=== PATIENT | male | born 1965 | race Caucasian/White ===

== ENCOUNTER 2017-04-04 13:42 | Inpatient (IN) | payer MEDICAID ==
[~2017-04-04] VITALS: Ht 177.8 cm; Wt 101.0 kg
[2017-04-04 14:45] LABS: CALCIUM 10.1 mg/dL (8.5-10.1); CHLORIDE SERUM 85 mmol/L (98-107); CREATININE SERUM 1.1 mg/dL (0.7-1.3); GFR1 > 60 mL/min; GLUCOSE SERUM 320 mg/dL (74-106); POTASSIUM SERUM 4.8 mmol/L (3.5-5.1); SODIUM SERUM 128 mmol/L (136-145)
[2017-04-04 14:46] LABS: BASOPHIL % 0.3 % (0-2); PLATELET COUNT 267 x10^3mcL (130-400)
[2017-04-04 14:48] LABS: RED CELL DISTRIBUTION WIDTH 17.5 % (11.5-14.5)
[2017-04-04 14:56] LABS: ALBUMIN 3.8 g/dL (3.4-5.0); ALKALINE PHOSPHATASE 132 U/L (46-116); ALT/SGPT 93 U/L (16-63); AST/SGOT 122 U/L (15-37); BILIRUBIN TOTAL 1.3 mg/dL (0.20-1.00); TOTAL PROTEIN, SERUM 7.7 g/dL (6.4-8.2)
[2017-04-04 15:01] LABS: LIPASE 1710 IU/L (73-393)
[2017-04-04] MEDS ORDERED: GLU500 (15:17)
[2017-04-04] MEDS ORDERED: LANTUS SOLOS100 U/M1 SC (15:17)
[2017-04-04] MEDS ORDERED: LISINOPRIL2.5 MG (15:17)
[2017-04-04 15:32] LABS: UA SPECIFIC GRAVITY >=1.030 (1.005-1.035); microscopic required? YES; urine erythrocyte NEGATIVE (NEGATIVE)
[2017-04-04 15:56] LABS: AMPHETAMINE QUAL UR NONE DETECTED (NEG <=1000)
[2017-04-04 15:58] LABS: MAGNESIUM 2.2 mg/dL (1.8-2.4)
[2017-04-04 15:59] LABS: T3 TOTAL 0.47 ng/mL
[2017-04-04 16:00] LABS: AMYLASE 125 U/L (25-115)
[2017-04-04 16:01] LABS: CHOLESTEROL 262 mg/dL (<200); CHOLESTEROL/HDL RATIO 9.4; HDL CHOLESTEROL 28 mg/dL (40-60); TRIGLYCERIDES 1165 mg/dL (<150)
[2017-04-04 16:03] LABS: FREE T4 0.8 ng/dL (0.76-1.46); FREE THYROXINE INDEX 1.9 ug/dL (1.4-4.5); T4(THYROXINE) 5.4 ug/dL (4.7-13.3)
[2017-04-04 16:12] VITALS: BP 160/88
[2017-04-04 19:15] VITALS: BP 165/87
[2017-04-04 20:52] LABS: CALCIUM 8.7 mg/dL (8.5-10.1); CHLORIDE SERUM 93 mmol/L (98-107); CREATININE SERUM 1.2 mg/dL (0.7-1.3); GFR1 > 60 mL/min; GLUCOSE SERUM 227 mg/dL (74-106); PHOSPHOROUS 2.9 mg/dL (2.5-4.9); POTASSIUM SERUM 3.8 mmol/L (3.5-5.1); SODIUM SERUM 134 mmol/L (136-145)
[2017-04-04 23:22] VITALS: BP 155/84
[2017-04-05 00:33] LABS: CALCIUM 8.1 mg/dL (8.5-10.1); CARBON DIOXIDE 24.9 mmol/L (21-32); CHLORIDE SERUM 94 mmol/L (98-107); CREATININE SERUM 0.9 mg/dL (0.7-1.3); GFR1 > 60 mL/min; GLUCOSE SERUM 195 mg/dL (74-106); MAGNESIUM 1.8 mg/dL (1.8-2.4); PHOSPHOROUS 1.2 mg/dL (2.5-4.9); POTASSIUM SERUM 3.5 mmol/L (3.5-5.1); SODIUM SERUM 131 mmol/L (136-145)
[2017-04-05 03:15] VITALS: BP 176/101
[2017-04-05 05:39] LABS: CALCIUM 8.4 mg/dL (8.5-10.1); CARBON DIOXIDE 25.8 mmol/L (21-32); CHLORIDE SERUM 93 mmol/L (98-107); CREATININE SERUM 0.8 mg/dL (0.7-1.3); GFR1 > 60 mL/min; GLUCOSE SERUM 166 mg/dL (74-106); MAGNESIUM 1.8 mg/dL (1.8-2.4); PHOSPHOROUS 1.2 mg/dL (2.5-4.9)
[2017-04-05 05:56] LABS: SODIUM SERUM 131 mmol/L (136-145)
[2017-04-05 05:59] LABS: POTASSIUM SERUM 2.9 mmol/L (3.5-5.1)
[2017-04-05 07:39] VITALS: BP 154/98
[2017-04-05 09:27] LABS: CALCIUM 8.2 mg/dL (8.5-10.1); CHLORIDE SERUM 92 mmol/L (98-107); CREATININE SERUM 0.8 mg/dL (0.7-1.3); GFR1 > 60 mL/min; GLUCOSE SERUM 211 mg/dL (74-106); MAGNESIUM 1.8 mg/dL (1.8-2.4); PHOSPHOROUS 1.1 mg/dL (2.5-4.9); SODIUM SERUM 129 mmol/L (136-145)
[2017-04-05 09:40] LABS: POTASSIUM SERUM 2.9 mmol/L (3.5-5.1)
[2017-04-05 12:23] VITALS: BP 149/93
[2017-04-05 13:33] LABS: CALCIUM 7.8 mg/dL (8.5-10.1); CARBON DIOXIDE 25.7 mmol/L (21-32); CHLORIDE SERUM 93 mmol/L (98-107); CREATININE SERUM 0.8 mg/dL (0.7-1.3); GFR1 > 60 mL/min; GLUCOSE SERUM 196 mg/dL (74-106); MAGNESIUM 1.6 mg/dL (1.8-2.4); PHOSPHOROUS 1.7 mg/dL (2.5-4.9); POTASSIUM SERUM 3.4 mmol/L (3.5-5.1); SODIUM SERUM 131 mmol/L (136-145)
[2017-04-05 15:33] VITALS: BP 134/97
[2017-04-05 17:01] LABS: CALCIUM 7.6 mg/dL (8.5-10.1); CHLORIDE SERUM 93 mmol/L (98-107); CREATININE SERUM 0.8 mg/dL (0.7-1.3); GFR1 > 60 mL/min; GLUCOSE SERUM 198 mg/dL (74-106); MAGNESIUM 1.7 mg/dL (1.8-2.4); PHOSPHOROUS 1.4 mg/dL (2.5-4.9); POTASSIUM SERUM 3.1 mmol/L (3.5-5.1); SODIUM SERUM 129 mmol/L (136-145)
[2017-04-05 19:15] VITALS: BP 125/94
[2017-04-05 20:20] LABS: BASOPHIL % 0.9 % (0-2); PLATELET COUNT 171 x10^3mcL (130-400)
[2017-04-05 20:31] LABS: RED CELL DISTRIBUTION WIDTH 17.8 % (11.5-14.5)
[2017-04-05 20:35] LABS: CALCIUM 7.6 mg/dL (8.5-10.1); CARBON DIOXIDE 28.6 mmol/L (21-32); CHLORIDE SERUM 94 mmol/L (98-107); CREATININE SERUM 0.8 mg/dL (0.7-1.3); GFR1 > 60 mL/min; GLUCOSE SERUM 173 mg/dL (74-106); MAGNESIUM 1.6 mg/dL (1.8-2.4); PHOSPHOROUS 1.1 mg/dL (2.5-4.9); SODIUM SERUM 131 mmol/L (136-145)
[2017-04-05 20:37] LABS: POTASSIUM SERUM 2.9 mmol/L (3.5-5.1)
[2017-04-05 23:00] VITALS: BP 125/64
[2017-04-06] VITALS (10 sets, daily range): BP systolic 124–150; BP diastolic 83–99
[2017-04-06 00:29] LABS: CALCIUM 7.7 mg/dL (8.5-10.1); CARBON DIOXIDE 28.7 mmol/L (21-32); CHLORIDE SERUM 95 mmol/L (98-107); CREATININE SERUM 0.8 mg/dL (0.7-1.3); GFR1 > 60 mL/min; GLUCOSE SERUM 146 mg/dL (74-106); MAGNESIUM 1.7 mg/dL (1.8-2.4); PHOSPHOROUS 1.2 mg/dL (2.5-4.9); POTASSIUM SERUM 3.8 mmol/L (3.5-5.1); SODIUM SERUM 132 mmol/L (136-145)
[2017-04-06 05:22] LABS: CALCIUM 7.7 mg/dL (8.5-10.1); CARBON DIOXIDE 21.9 mmol/L (21-32); CHLORIDE SERUM 95 mmol/L (98-107); CREATININE SERUM 0.8 mg/dL (0.7-1.3); GFR1 > 60 mL/min; GLUCOSE SERUM 286 mg/dL (74-106); MAGNESIUM 1.7 mg/dL (1.8-2.4); PHOSPHOROUS 1.3 mg/dL (2.5-4.9); POTASSIUM SERUM 3.7 mmol/L (3.5-5.1); SODIUM SERUM 131 mmol/L (136-145)
[2017-04-06 11:58] LABS: CALCIUM 7.6 mg/dL (8.5-10.1); CARBON DIOXIDE 26.8 mmol/L (21-32); CHLORIDE SERUM 97 mmol/L (98-107); CREATININE SERUM 0.7 mg/dL (0.7-1.3); GFR1 > 60 mL/min; GLUCOSE SERUM 229 mg/dL (74-106); MAGNESIUM 1.8 mg/dL (1.8-2.4); PHOSPHOROUS 1.2 mg/dL (2.5-4.9); POTASSIUM SERUM 3.5 mmol/L (3.5-5.1); SODIUM SERUM 135 mmol/L (136-145)
[2017-04-06 16:14] LABS: CALCIUM 7.9 mg/dL (8.5-10.1); CARBON DIOXIDE 26.4 mmol/L (21-32); CHLORIDE SERUM 98 mmol/L (98-107); CREATININE SERUM 0.6 mg/dL (0.7-1.3); GFR1 > 60 mL/min; GLUCOSE SERUM 205 mg/dL (74-106); MAGNESIUM 1.8 mg/dL (1.8-2.4); POTASSIUM SERUM 3.3 mmol/L (3.5-5.1); SODIUM SERUM 134 mmol/L (136-145)
[2017-04-06 16:25] LABS: PHOSPHOROUS 1.1 mg/dL (2.5-4.9)
[2017-04-07 06:16] VITALS: BP 142/83
[2017-04-07 08:02] VITALS: Ht 177.8 cm; Wt 101.0 kg
[2017-04-07 08:24] LABS: BASOPHIL % 0.3 % (0-2); PLATELET COUNT 161 x10^3mcL (130-400)
[2017-04-07 08:50] LABS: RED CELL DISTRIBUTION WIDTH 18.7 % (11.5-14.5)
[2017-04-07 09:03] LABS: CALCIUM 7.9 mg/dL (8.5-10.1); CARBON DIOXIDE 22.3 mmol/L (21-32); CHLORIDE SERUM 97 mmol/L (98-107); CREATININE SERUM 0.6 mg/dL (0.7-1.3); GFR1 > 60 mL/min; GLUCOSE SERUM 197 mg/dL (74-106); POTASSIUM SERUM 4.1 mmol/L (3.5-5.1); SODIUM SERUM 131 mmol/L (136-145)
[2017-04-07 09:42] VITALS: BP 141/87
[2017-04-07] MEDS ORDERED: LANTUS SOLOS100 U/M1 SC (09:51)
[2017-04-07] MEDS ORDERED: LIPI20 PO (09:53)
[2017-04-07] MEDS ORDERED: ZES5 PO (09:54)
[2017-04-07] MEDS ORDERED: NORCO1 TA2 PO (09:54)
[2017-04-07] MEDS ORDERED: COLACE100 MG PO (09:55)
[2017-04-07] MEDS ORDERED: LAC30L PO (10:40)
[2017-04-07] MEDS ORDERED: PROZ20 PO (10:40)
[2017-04-07] MEDS ORDERED: BAY PO (10:40)
[2017-04-07] MEDS ORDERED: ATI1 PO (10:40)
[2017-04-07] MEDS ORDERED: GLU500 PO (10:40)
[2017-04-07] MEDS ORDERED: HUMALOG100 U/ML SC (10:40)
[2017-04-07] MEDS ORDERED: ZOF4 PO (10:55)
[2017-04-07 12:15] VITALS: BP 141/87
== END 2017-04-07 12:53 | disposition home or self-care (01) | DRG 420 ==
LOC: ED 13:42 → IC 15:09 → DU 04-06 17:40
PROVIDERS: Emergency Medicine; Family Medicine; Family Medicine Sports Medicine
PROC: 05HM33Z Insertion of Infusion Device into Right Internal Jugular Vein, Percutaneous Approach (ICD-10-PCS; principal; 2017-04-04)
DX: E11.10 Type 2 diabetes mellitus with ketoacidosis without coma (principal); N17.0 Acute kidney failure with tubular necrosis; K85.90 Acute pancreatitis without necrosis or infection, unspecified; K70.0 Alcoholic fatty liver; E83.39 Other disorders of phosphorus metabolism; E11.51 Type 2 diabetes mellitus with diabetic peripheral angiopathy without gangrene; K72.90 Hepatic failure, unspecified without coma; E87.1 Hypo-osmolality and hyponatremia; E87.6 Hypokalemia; E78.5 Hyperlipidemia, unspecified; F41.1 Generalized anxiety disorder; I10 Essential (primary) hypertension; F10.229 Alcohol dependence with intoxication, unspecified; Z79.4 Long term (current) use of insulin; Z68.30 Body mass index [BMI] 30.0-30.9, adult
CPT/HCPCS: 36556; 36600; 82962; 83880; 84439; C9113; G0480; J0360; J1642; J1815; J1885; J2001; J2060; J2270; J2405; J2765; J3010; J3480; J3490; J7030; Q0092

== ENCOUNTER 2017-04-14 17:59 | Emergency (ER) | payer MEDICAID ==
[~2017-04-14 17:59] MED LIST: ATI1 PO; BAY PO; COLACE100 MG PO; GLU500; GLU500 PO; HUMALOG100 U/ML SC; LAC30L PO; LANTUS SOLOS100 U/M1 SC; LIPI20 PO; LISINOPRIL2.5 MG; NORCO1 TA2 PO; PROZ20 PO; ZES5 PO; ZOF4 PO
== END 2017-04-14 19:13 | disposition left against medical advice (07) ==
LOC: ED 17:59
DX: Z53.21 Procedure and treatment not carried out due to patient leaving prior to being seen by health care provider (principal)

== ENCOUNTER 2017-06-13 11:25 | Inpatient (IN) | payer MEDICAID ==
[~2017-06-13] VITALS: Ht 177.8 cm; Wt 88.0 kg
[2017-06-13 11:30] VITALS: Ht 177.8 cm; Wt 88.0 kg
[2017-06-13 12:26] LABS: PLATELET COUNT 192 x10^3mcL (130-400)
[2017-06-13 12:27] LABS: BASOPHIL % 0 % (0-2); RED CELL DISTRIBUTION WIDTH 15.3 % (11.5-14.5)
[2017-06-13 12:32] LABS: CALCIUM 8.4 mg/dL (8.5-10.1); CARBON DIOXIDE 18.3 mmol/L (21-32); CHLORIDE SERUM 91 mmol/L (98-107); CREATININE SERUM 0.9 mg/dL (0.7-1.3); GFR1 > 60 mL/min; GLUCOSE SERUM 203 mg/dL (74-106); POTASSIUM SERUM 3.5 mmol/L (3.5-5.1); SODIUM SERUM 138 mmol/L (136-145)
[2017-06-13 12:36] LABS: ALBUMIN 3.6 g/dL (3.4-5.0); ALKALINE PHOSPHATASE 66 U/L (46-116); ALT/SGPT 51 U/L (16-63); AST/SGOT 67 U/L (15-37); BILIRUBIN TOTAL 0.86 mg/dL (0.20-1.00); LIPASE 113 IU/L (73-393)
[2017-06-13 14:27] LABS: CHOLESTEROL/HDL RATIO 2.8; MAGNESIUM 1.6 mg/dL (1.8-2.4); PHOSPHOROUS 3.8 mg/dL (2.5-4.9)
[2017-06-13 14:37] LABS: FREE T4 0.82 ng/dL (0.76-1.46)
[2017-06-13 14:39] LABS: FREE THYROXINE INDEX 1.6 ug/dL (1.4-4.5); T4(THYROXINE) 4.2 ug/dL (4.7-13.3)
[2017-06-13 15:11] LABS: T3 TOTAL 0.57 ng/mL
[2017-06-13 15:37] VITALS: BP 130/70
[2017-06-13 16:15] LABS: UA SPECIFIC GRAVITY >=1.030 (1.005-1.035); microscopic required? YES; urine erythrocyte TRACE (NEGATIVE)
[2017-06-13 16:39] LABS: AMPHETAMINE QUAL UR NONE DETECTED (NEG <=1000)
[2017-06-13 17:48] VITALS: BP 118/68
[2017-06-13 20:43] VITALS: BP 134/77
[2017-06-14 06:12] VITALS: BP 128/80
[2017-06-14 06:58] LABS: BASOPHIL % 0.3 % (0-2)
[2017-06-14 07:14] LABS: PLATELET COUNT 125 x10^3mcL (130-400); RED CELL DISTRIBUTION WIDTH 15.6 % (11.5-14.5)
[2017-06-14 07:20] LABS: CALCIUM 8.2 mg/dL (8.5-10.1); CARBON DIOXIDE 27.7 mmol/L (21-32); CHLORIDE SERUM 95 mmol/L (98-107); GFR1 > 60 mL/min; GLUCOSE SERUM 252 mg/dL (74-106); MAGNESIUM 1.9 mg/dL (1.8-2.4); PHOSPHOROUS 2.2 mg/dL (2.5-4.9); POTASSIUM SERUM 3.2 mmol/L (3.5-5.1); SODIUM SERUM 135 mmol/L (136-145)
[2017-06-14 08:00] VITALS: BP 139/85
[2017-06-14 13:06] VITALS: BP 129/74
[2017-06-14] MEDS ORDERED: PROZ20 PO (15:43)
[2017-06-14 16:55] VITALS: BP 145/84
[2017-06-14 20:38] VITALS: BP 137/80
[2017-06-15 05:12] VITALS: BP 136/81
[2017-06-15 06:27] LABS: BASOPHIL % 0.4 % (0-2)
[2017-06-15 06:44] LABS: PLATELET COUNT 98 x10^3mcL (130-400); RED CELL DISTRIBUTION WIDTH 15.2 % (11.5-14.5)
[2017-06-15 06:48] LABS: CALCIUM 8.6 mg/dL (8.5-10.1); CHLORIDE SERUM 100 mmol/L (98-107); CREATININE SERUM 0.9 mg/dL (0.7-1.3); GFR1 > 60 mL/min; GLUCOSE SERUM 325 mg/dL (74-106); MAGNESIUM 1.5 mg/dL (1.8-2.4); POTASSIUM SERUM 3.6 mmol/L (3.5-5.1); SODIUM SERUM 137 mmol/L (136-145)
[2017-06-15 08:32] VITALS: BP 146/88
[2017-06-15] MEDS ORDERED: PROZ20 PO (11:07)
[2017-06-15] MEDS ORDERED: METOPROLOL TART25 M1 PO (11:11)
[2017-06-15] MEDS ORDERED: LIB25 PO (11:12)
[2017-06-15] MEDS ORDERED: NPHOS PO (11:15)
[2017-06-15] MEDS ORDERED: SIMETHICONE80 MG CH (11:28)
[2017-06-15] MEDS ORDERED: THI100 PO (11:29)
[2017-06-15] MEDS ORDERED: FOL1 PO (11:29)
[2017-06-15] MEDS ORDERED: THERAGRAN-M1 TA4 PO (11:32)
[2017-06-15 12:41] VITALS: BP 146/88
[2017-06-15 13:03] VITALS: BP 141/84
== END 2017-06-15 17:03 | disposition home or self-care (01) | DRG 775 ==
LOC: ED 11:25 → DU 12:50
PROVIDERS: Emergency Medicine; Family Medicine
DX: F10.229 Alcohol dependence with intoxication, unspecified (principal); N17.0 Acute kidney failure with tubular necrosis; E13.00 Other specified diabetes mellitus with hyperosmolarity without nonketotic hyperglycemic-hyperosmolar coma (NKHHC); G92 Toxic encephalopathy; I10 Essential (primary) hypertension; Z88.8 Allergy status to other drugs, medicaments and biological substances; Y90.9 Presence of alcohol in blood, level not specified; F32.9 Major depressive disorder, single episode, unspecified; Z90.49 Acquired absence of other specified parts of digestive tract; Z79.4 Long term (current) use of insulin; Z79.82 Long term (current) use of aspirin; E78.1 Pure hyperglyceridemia; E83.42 Hypomagnesemia; K21.9 Gastro-esophageal reflux disease without esophagitis; E87.6 Hypokalemia
CPT/HCPCS: 82962; 83880; 84439; G0480; J1815; J2060; J2405; J3475; J3480; J3490; J7030; Q0092

== ENCOUNTER 2017-06-28 02:22 | Inpatient (IN) | payer MEDICAID ==
[~2017-06-28] VITALS: Ht 177.8 cm; Wt 92.0 kg
[~2017-06-28 02:22] MED LIST changes: +FOL1 PO; +LIB25 PO; +METOPROLOL TART25 M1 PO; +NPHOS PO; +SIMETHICONE80 MG CH; +THERAGRAN-M1 TA4 PO; +THI100 PO
[2017-06-28 02:29] VITALS: Ht 177.8 cm; Wt 92.0 kg
[2017-06-28 03:31] LABS: BASOPHIL % 0.3 % (0-2); PLATELET COUNT 193 x10^3mcL (130-400)
[2017-06-28 03:39] LABS: RED CELL DISTRIBUTION WIDTH 17.6 % (11.5-14.5)
[2017-06-28 03:48] LABS: CALCIUM 9.9 mg/dL (8.5-10.1); CARBON DIOXIDE 17.2 mmol/L (21-32); CHLORIDE SERUM 94 mmol/L (98-107); CREATININE SERUM 1.1 mg/dL (0.7-1.3); GFR1 > 60 mL/min; GLUCOSE SERUM 234 mg/dL (74-106); POTASSIUM SERUM 4.1 mmol/L (3.5-5.1); SODIUM SERUM 136 mmol/L (136-145)
[2017-06-28 03:53] LABS: ALBUMIN 3.5 g/dL (3.4-5.0); ALKALINE PHOSPHATASE 82 U/L (46-116); ALT/SGPT 110 U/L (16-63); AST/SGOT 202 U/L (15-37); BILIRUBIN TOTAL 0.96 mg/dL (0.20-1.00); TOTAL PROTEIN, SERUM 7.1 g/dL (6.4-8.2)
[2017-06-28 04:14] LABS: UA SPECIFIC GRAVITY >=1.030 (1.005-1.035); microscopic required? YES; urine erythrocyte TRACE (NEGATIVE)
[2017-06-28 05:35] LABS: CHOLESTEROL/HDL RATIO 3.1; PHOSPHOROUS 5.1 mg/dL (2.5-4.9)
[2017-06-28 05:38] LABS: MAGNESIUM 0.8 mg/dL (1.8-2.4)
[2017-06-28 05:45] LABS: FREE T4 0.72 ng/dL (0.76-1.46)
[2017-06-28] MEDS ORDERED: LISINOPRIL10 MG PO (05:45)
[2017-06-28] MEDS ORDERED: METFORMIN HCL1000 MG PO (05:45)
[2017-06-28 05:47] LABS: FREE THYROXINE INDEX 1.8 ug/dL (1.4-4.5); T4(THYROXINE) 4.6 ug/dL (4.7-13.3)
[2017-06-28 06:01] LABS: T3 TOTAL 0.55 ng/mL
[2017-06-28 06:51] VITALS: BP 132/78
[2017-06-28 09:29] LABS: CARBON DIOXIDE 22.2 mmol/L (21-32); CHLORIDE SERUM 100 mmol/L (98-107); CREATININE SERUM 0.8 mg/dL (0.7-1.3); GFR1 > 60 mL/min; GLUCOSE SERUM 201 mg/dL (74-106); MAGNESIUM 1.4 mg/dL (1.8-2.4); PHOSPHOROUS 2.8 mg/dL (2.5-4.9); SODIUM SERUM 137 mmol/L (136-145)
[2017-06-28 09:46] LABS: POTASSIUM SERUM 4.2 mmol/L (3.5-5.1)
[2017-06-28 12:30] VITALS: BP 131/85
[2017-06-28 13:04] LABS: CALCIUM 8.7 mg/dL (8.5-10.1); CARBON DIOXIDE 29.5 mmol/L (21-32); CHLORIDE SERUM 98 mmol/L (98-107); CREATININE SERUM 0.8 mg/dL (0.7-1.3); GFR1 > 60 mL/min; GLUCOSE SERUM 148 mg/dL (74-106); PHOSPHOROUS 2.7 mg/dL (2.5-4.9); POTASSIUM SERUM 3.7 mmol/L (3.5-5.1); SODIUM SERUM 134 mmol/L (136-145)
[2017-06-28 14:05] LABS: AMPHETAMINE QUAL UR NONE DETECTED (NEG <=1000)
[2017-06-28 16:00] VITALS: BP 121/76
[2017-06-28 16:39] LABS: CALCIUM 8.4 mg/dL (8.5-10.1); CARBON DIOXIDE 31.1 mmol/L (21-32); CHLORIDE SERUM 101 mmol/L (98-107); CREATININE SERUM 0.9 mg/dL (0.7-1.3); GFR1 > 60 mL/min; GLUCOSE SERUM 180 mg/dL (74-106); MAGNESIUM 1.6 mg/dL (1.8-2.4); POTASSIUM SERUM 3.8 mmol/L (3.5-5.1); SODIUM SERUM 141 mmol/L (136-145)
[2017-06-28 20:53] VITALS: BP 123/83
[2017-06-29 05:41] VITALS: BP 117/80
[2017-06-29 07:22] LABS: BASOPHIL % 0.8 % (0-2)
[2017-06-29 07:23] LABS: PLATELET COUNT 118 x10^3mcL (130-400); RED CELL DISTRIBUTION WIDTH 17.5 % (11.5-14.5)
[2017-06-29 07:41] LABS: CALCIUM 7.9 mg/dL (8.5-10.1); CARBON DIOXIDE 25.9 mmol/L (21-32); CHLORIDE SERUM 103 mmol/L (98-107); CREATININE SERUM 0.8 mg/dL (0.7-1.3); GFR1 > 60 mL/min; GLUCOSE SERUM 306 mg/dL (74-106); MAGNESIUM 1.3 mg/dL (1.8-2.4); PHOSPHOROUS 2.2 mg/dL (2.5-4.9); POTASSIUM SERUM 3.9 mmol/L (3.5-5.1); SODIUM SERUM 140 mmol/L (136-145)
[2017-06-29 09:22] VITALS: BP 117/75
[2017-06-29 14:06] VITALS: BP 114/70
[2017-06-29 16:53] VITALS: BP 120/74
[2017-06-29 20:39] VITALS: BP 121/77
[2017-06-30 05:38] VITALS: BP 143/79
[2017-06-30 06:20] LABS: BASOPHIL % 0.3 % (0-2)
[2017-06-30 06:22] LABS: PLATELET COUNT 120 x10^3mcL (130-400); RED CELL DISTRIBUTION WIDTH 17.7 % (11.5-14.5)
[2017-06-30 06:40] LABS: CARBON DIOXIDE 25.5 mmol/L (21-32); CHLORIDE SERUM 104 mmol/L (98-107); CREATININE SERUM 0.8 mg/dL (0.7-1.3); GFR1 > 60 mL/min; GLUCOSE SERUM 203 mg/dL (74-106); MAGNESIUM 1.7 mg/dL (1.8-2.4); PHOSPHOROUS 2.2 mg/dL (2.5-4.9); POTASSIUM SERUM 3.9 mmol/L (3.5-5.1); SODIUM SERUM 139 mmol/L (136-145)
[2017-06-30 09:19] VITALS: BP 113/87
[2017-06-30 09:51] VITALS: BP 113/87
[2017-06-30] MEDS ORDERED: LEVEMIR100 U/M1 SC (12:39)
[2017-06-30] MEDS ORDERED: ATIVAN1 MG PO (12:40)
== END 2017-06-30 13:35 | disposition home or self-care (01) | DRG 420 ==
LOC: ED 02:22 → DU 04:36 → IC 04:36 → EDBEDREQSVC 04:37 → IC 06:27 → DU 19:02
PROVIDERS: Emergency Medicine; Student in an Organized Health Care Education/Training Program
DX: E11.10 Type 2 diabetes mellitus with ketoacidosis without coma (principal); N17.0 Acute kidney failure with tubular necrosis; E83.42 Hypomagnesemia; I10 Essential (primary) hypertension; D64.9 Anemia, unspecified; F10.239 Alcohol dependence with withdrawal, unspecified; E83.39 Other disorders of phosphorus metabolism; E66.9 Obesity, unspecified; E11.649 Type 2 diabetes mellitus with hypoglycemia without coma; Y90.1 Blood alcohol level of 20-39 mg/100 ml; R74.0 Nonspecific elevation of levels of transaminase and lactic acid dehydrogenase [LDH]; F32.9 Major depressive disorder, single episode, unspecified; Z88.5 Allergy status to narcotic agent; Z90.49 Acquired absence of other specified parts of digestive tract; Z79.82 Long term (current) use of aspirin; Z79.4 Long term (current) use of insulin; Z79.899 Other long term (current) drug therapy; Z91.018 Allergy to other foods; Z68.28 Body mass index [BMI] 28.0-28.9, adult
CPT/HCPCS: 82962; 83880; 84439; G0480; J1815; J2060; J2405; J3475; J3480; J3490; J7030

== ENCOUNTER 2017-07-29 07:01 | Inpatient (IN) | payer OTHER ==
[~2017-07-29] VITALS: Ht 177.8 cm; Wt 90.4 kg
[~2017-07-29 07:01] MED LIST changes: +ATIVAN1 MG PO; +LEVEMIR100 U/M1 SC; +LISINOPRIL10 MG PO; +METFORMIN HCL1000 MG PO
[2017-07-29 07:05] VITALS: Ht 177.8 cm; Wt 90.4 kg
[2017-07-29 08:08] LABS: CALCIUM 9.6 mg/dL (8.5-10.1); CHLORIDE SERUM 94 mmol/L (98-107); CREATININE SERUM 0.9 mg/dL (0.7-1.3); GFR1 > 60 mL/min; GLUCOSE SERUM 228 mg/dL (74-106); POTASSIUM SERUM 3.7 mmol/L (3.5-5.1); SODIUM SERUM 132 mmol/L (136-145)
[2017-07-29 08:13] LABS: ALBUMIN 3.9 g/dL (3.4-5.0); ALKALINE PHOSPHATASE 160 U/L (46-116); ALT/SGPT 275 U/L (16-63); AST/SGOT 269 U/L (15-37); BILIRUBIN TOTAL 1.2 mg/dL (0.20-1.00); TOTAL PROTEIN, SERUM 7.5 g/dL (6.4-8.2)
[2017-07-29 08:15] LABS: LIPASE 2033 IU/L (73-393)
[2017-07-29 08:24] LABS: BASOPHIL % 0.4 % (0-2); PLATELET COUNT 185 x10^3mcL (130-400)
[2017-07-29 08:25] LABS: RED CELL DISTRIBUTION WIDTH 18.8 % (11.5-14.5)
[2017-07-29] MEDS ORDERED: GLYBURIDE5 MG PO (09:54)
[2017-07-29 10:05] LABS: AMPHETAMINE QUAL UR NONE DETECTED (NEG <=1000)
[2017-07-29] MEDS ORDERED: HUMALOG100 U/ML SC (10:22)
[2017-07-29 12:54] VITALS: BP 162/94
[2017-07-29 13:00] LABS: AMYLASE 111 U/L (25-115); CHOLESTEROL 148 mg/dL (<200); CHOLESTEROL/HDL RATIO 3.5; HDL CHOLESTEROL 42 mg/dL (40-60); MAGNESIUM 1.4 mg/dL (1.8-2.4); PHOSPHOROUS 2.9 mg/dL (2.5-4.9)
[2017-07-29 13:01] LABS: TRIGLYCERIDES 462 mg/dL (<150)
[2017-07-29 13:06] LABS: FREE T4 0.83 ng/dL (0.76-1.46); FREE THYROXINE INDEX 2.1 ug/dL (1.4-4.5); T4(THYROXINE) 6.1 ug/dL (4.7-13.3)
[2017-07-29 13:09] LABS: T3 TOTAL 0.88 ng/mL
[2017-07-29 13:25] LABS: UA SPECIFIC GRAVITY 1.025 (1.005-1.035); microscopic required? YES; urine erythrocyte NEGATIVE (NEGATIVE)
[2017-07-29 17:15] VITALS: BP 142/96
[2017-07-29 19:50] VITALS: BP 160/90
[2017-07-29 21:30] VITALS: BP 170/94
[2017-07-29 22:15] VITALS: BP 179/95
[2017-07-30 05:42] VITALS: BP 139/84
[2017-07-30 06:16] LABS: BASOPHIL % 0.3 % (0-2); PLATELET COUNT 159 x10^3mcL (130-400)
[2017-07-30 06:41] LABS: CALCIUM 7.8 mg/dL (8.5-10.1); CARBON DIOXIDE 27.2 mmol/L (21-32); CHLORIDE SERUM 95 mmol/L (98-107); CREATININE SERUM 0.7 mg/dL (0.7-1.3); GFR1 > 60 mL/min; GLUCOSE SERUM 290 mg/dL (74-106); MAGNESIUM 1.7 mg/dL (1.8-2.4); POTASSIUM SERUM 3.3 mmol/L (3.5-5.1); SODIUM SERUM 132 mmol/L (136-145)
[2017-07-30 07:25] LABS: RED CELL DISTRIBUTION WIDTH 18.7 % (11.5-14.5)
[2017-07-30 09:19] VITALS: BP 152/90
[2017-07-30 13:09] VITALS: BP 136/83
[2017-07-30 17:00] VITALS: BP 140/93
[2017-07-30 21:12] VITALS: BP 147/94
[2017-07-31 05:35] LABS: BASOPHIL % 0.4 % (0-2); PLATELET COUNT 151 x10^3mcL (130-400)
[2017-07-31] MEDS ORDERED: METFORMIN HCL850 MG PO (05:36)
[2017-07-31 05:38] LABS: CALCIUM 8.3 mg/dL (8.5-10.1); CHLORIDE SERUM 97 mmol/L (98-107); CREATININE SERUM 0.6 mg/dL (0.7-1.3); GFR1 > 60 mL/min; GLUCOSE SERUM 211 mg/dL (74-106); MAGNESIUM 1.7 mg/dL (1.8-2.4); POTASSIUM SERUM 3.5 mmol/L (3.5-5.1); RED CELL DISTRIBUTION WIDTH 18.8 % (11.5-14.5); SODIUM SERUM 135 mmol/L (136-145)
[2017-07-31 05:49] VITALS: BP 142/89
[2017-07-31 09:43] VITALS: BP 105/64
[2017-07-31] MEDS ORDERED: ATIVAN0.5 M1 PO (10:10)
[2017-07-31] MEDS ORDERED: ZOF4 PO (10:10)
[2017-07-31 11:00] VITALS: BP 105/64
== END 2017-07-31 12:19 | disposition home or self-care (01) | DRG 282 ==
LOC: ED 07:01 → DU 11:43
PROVIDERS: Emergency Medicine; Family Medicine
DX: K85.90 Acute pancreatitis without necrosis or infection, unspecified (principal); N17.0 Acute kidney failure with tubular necrosis; E11.51 Type 2 diabetes mellitus with diabetic peripheral angiopathy without gangrene; K70.9 Alcoholic liver disease, unspecified; E11.65 Type 2 diabetes mellitus with hyperglycemia; Z88.5 Allergy status to narcotic agent; I10 Essential (primary) hypertension; F14.10 Cocaine abuse, uncomplicated; F19.10 Other psychoactive substance abuse, uncomplicated; E02 Subclinical iodine-deficiency hypothyroidism; F10.10 Alcohol abuse, uncomplicated; F31.81 Bipolar II disorder; Z90.49 Acquired absence of other specified parts of digestive tract; Z91.018 Allergy to other foods
CPT/HCPCS: 82962; 83880; 84439; G0480; J1885; J1940; J2405; J3475; J7030; J7042; Q0092; Q0169

== ENCOUNTER 2017-09-11 01:58 | Inpatient (IN) | payer OTHER ==
[2017-09-11] VITALS (8 sets, daily range): BP systolic 141–172; BP diastolic 84–100; Ht 177.8 cm; Wt 90.7 kg
[~2017-09-11] VITALS: Ht 177.8 cm; Wt 90.7 kg
[~2017-09-11 01:58] MED LIST changes: +ATIVAN0.5 M1 PO; +GLYBURIDE5 MG PO; +METFORMIN HCL850 MG PO
[2017-09-11 02:36] LABS: CALCIUM 8.6 mg/dL (8.5-10.1); CARBON DIOXIDE 20.9 mmol/L (21-32); CHLORIDE SERUM 95 mmol/L (98-107); GFR1 > 60 mL/min; GLUCOSE SERUM 350 mg/dL (74-106); POTASSIUM SERUM 4.3 mmol/L (3.5-5.1); SODIUM SERUM 135 mmol/L (136-145)
[2017-09-11 02:40] LABS: ALKALINE PHOSPHATASE 130 U/L (46-116); ALT/SGPT 125 U/L (16-63); AST/SGOT 214 U/L (15-37); BILIRUBIN TOTAL 4.06 mg/dL (0.20-1.00); TOTAL PROTEIN, SERUM 7.4 g/dL (6.4-8.2)
[2017-09-11 02:59] LABS: BASOPHIL % 0 % (0-2); PLATELET COUNT 113 x10^3mcL (130-400); RED CELL DISTRIBUTION WIDTH 15.4 % (11.5-14.5)
[2017-09-11 03:31] LABS: UA SPECIFIC GRAVITY 1.025 (1.005-1.035); microscopic required? YES; urine erythrocyte TRACE (NEGATIVE)
[2017-09-11] MEDS ORDERED: ZESTRIL10 MG (03:40)
[2017-09-11] MEDS ORDERED: FLUOXETINE20 M3 (03:40)
[2017-09-11 04:33] LABS: AMYLASE 91 U/L (25-115); MAGNESIUM 1.5 mg/dL (1.8-2.4); PHOSPHOROUS 3.7 mg/dL (2.5-4.9)
[2017-09-11 04:34] LABS: CHOLESTEROL 125 mg/dL (<200); CHOLESTEROL/HDL RATIO 6.3; HDL CHOLESTEROL 20 mg/dL (40-60); TRIGLYCERIDES 629 mg/dL (<150)
[2017-09-11 04:43] LABS: T3 TOTAL 0.85 ng/mL
[2017-09-11 04:48] LABS: AMPHETAMINE QUAL UR NONE DETECTED (NEG <=1000)
[2017-09-11 04:48] LABS: FREE T4 0.61 ng/dL (0.76-1.46); FREE THYROXINE INDEX 1.5 ug/dL (1.4-4.5); T4(THYROXINE) 4.7 ug/dL (4.7-13.3)
[2017-09-11 07:37] LABS: BASOPHIL % 0.1 % (0-2); PLATELET COUNT 95 x10^3mcL (130-400); RED CELL DISTRIBUTION WIDTH 15.6 % (11.5-14.5)
[2017-09-11 12:08] LABS: BASOPHIL % 0.4 % (0-2)
[2017-09-11 12:21] LABS: PLATELET COUNT 90 x10^3mcL (130-400); RED CELL DISTRIBUTION WIDTH 15.3 % (11.5-14.5)
[2017-09-11 12:46] LABS: ALBUMIN 3.5 g/dL (3.4-5.0); ALKALINE PHOSPHATASE 116 U/L (46-116); ALT/SGPT 105 U/L (16-63); AST/SGOT 169 U/L (15-37); BILIRUBIN TOTAL 3.19 mg/dL (0.20-1.00); CALCIUM 7.8 mg/dL (8.5-10.1); CARBON DIOXIDE 25.8 mmol/L (21-32); CHLORIDE SERUM 99 mmol/L (98-107); CREATININE SERUM 0.7 mg/dL (0.7-1.3); GFR1 > 60 mL/min; GLUCOSE SERUM 248 mg/dL (74-106); SODIUM SERUM 138 mmol/L (136-145); TOTAL PROTEIN, SERUM 6.7 g/dL (6.4-8.2)
[2017-09-12 04:58] VITALS: BP 143/84
[2017-09-12 06:26] LABS: BILIRUBIN DIRECT 1.08 mg/dL (0.0-0.2); BILIRUBIN TOTAL 2.42 mg/dL (0.20-1.00); TOTAL PROTEIN, SERUM 6.5 g/dL (6.4-8.2)
[2017-09-12 06:31] LABS: AMYLASE 46 U/L (25-115); LIPASE 600 IU/L (73-393)
[2017-09-12 06:33] LABS: CALCIUM 7.9 mg/dL (8.5-10.1); CARBON DIOXIDE 16.8 mmol/L (21-32); CHLORIDE SERUM 100 mmol/L (98-107); CREATININE SERUM 0.7 mg/dL (0.7-1.3); GFR1 > 60 mL/min; GLUCOSE SERUM 227 mg/dL (74-106); PHOSPHOROUS 1.4 mg/dL (2.5-4.9); POTASSIUM SERUM 3.9 mmol/L (3.5-5.1); SODIUM SERUM 138 mmol/L (136-145)
[2017-09-12 06:43] LABS: BASOPHIL % 0.1 % (0-2)
[2017-09-12 06:45] LABS: ALBUMIN 3.3 g/dL (3.4-5.0)
[2017-09-12 07:06] LABS: PLATELET COUNT 88 x10^3mcL (130-400); RED CELL DISTRIBUTION WIDTH 14.9 % (11.5-14.5)
[2017-09-12 08:35] VITALS: BP 148/91
[2017-09-12 09:31] VITALS: BP 118/69
[2017-09-12 11:59] VITALS: BP 143/83
[2017-09-12 15:39] VITALS: BP 144/96
[2017-09-12 21:25] VITALS: BP 162/90
[2017-09-13 05:18] VITALS: BP 144/86
[2017-09-13 05:55] LABS: CHLORIDE SERUM 102 mmol/L (98-107); CREATININE SERUM 0.6 mg/dL (0.7-1.3); GFR1 > 60 mL/min; GLUCOSE SERUM 174 mg/dL (74-106); MAGNESIUM 1.8 mg/dL (1.8-2.4); PHOSPHOROUS 1.2 mg/dL (2.5-4.9); POTASSIUM SERUM 3.3 mmol/L (3.5-5.1); SODIUM SERUM 137 mmol/L (136-145)
[2017-09-13 06:54] LABS: BASOPHIL % 0.2 % (0-2); PLATELET COUNT 95 x10^3mcL (130-400); RED CELL DISTRIBUTION WIDTH 15.4 % (11.5-14.5)
[2017-09-13 08:51] VITALS: BP 138/78
[2017-09-13 13:00] VITALS: BP 150/86
[2017-09-13] MEDS ORDERED: LIB25 PO (13:21)
[2017-09-13 15:45] VITALS: BP 146/85
[2017-09-13] MEDS ORDERED: NPHOS PO (15:52)
[2017-09-13] MEDS ORDERED: ATIVAN0.5 M1 PO (15:58)
[2017-09-13 20:23] VITALS: BP 139/88
[2017-09-14 05:56] VITALS: BP 144/91
[2017-09-14 06:31] LABS: BASOPHIL % 0.1 % (0-2)
[2017-09-14 06:53] LABS: PLATELET COUNT 111 x10^3mcL (130-400); RED CELL DISTRIBUTION WIDTH 15.4 % (11.5-14.5)
[2017-09-14 07:08] LABS: CALCIUM 8.1 mg/dL (8.5-10.1); CARBON DIOXIDE 23.4 mmol/L (21-32); CHLORIDE SERUM 101 mmol/L (98-107); CREATININE SERUM 0.6 mg/dL (0.7-1.3); GFR1 > 60 mL/min; GLUCOSE SERUM 227 mg/dL (74-106); PHOSPHOROUS 1.1 mg/dL (2.5-4.9); POTASSIUM SERUM 3.2 mmol/L (3.5-5.1); SODIUM SERUM 133 mmol/L (136-145)
[2017-09-14 08:49] VITALS: BP 170/101
[2017-09-14 08:50] VITALS: BP 170/101
[2017-09-14] MEDS ORDERED: ABILIFY5 M1 PO (09:33)
[2017-09-14] MEDS ORDERED: ATIVAN0.5 M1 PO ×2 (09:38→13:02)
[2017-09-14] MEDS ORDERED: ZOF4 PO (09:38)
[2017-09-14] MEDS ORDERED: LIB25 PO ×2 (09:38→13:02)
[2017-09-14] MEDS ORDERED: ZES10 PO (09:49)
[2017-09-14] MEDS ORDERED: LANTI SQ (11:57)
[2017-09-14] MEDS ORDERED: HUMALOG100 U/ML SC (11:57)
[2017-09-14 12:08] VITALS: BP 133/87
[2017-09-14 16:18] VITALS: BP 159/93
[2017-09-14 16:49] LABS: CALCIUM 8.5 mg/dL (8.5-10.1); CARBON DIOXIDE 23.7 mmol/L (21-32); CHLORIDE SERUM 99 mmol/L (98-107); CREATININE SERUM 0.6 mg/dL (0.7-1.3); GFR1 > 60 mL/min; GLUCOSE SERUM 249 mg/dL (74-106); PHOSPHOROUS 2.9 mg/dL (2.5-4.9); POTASSIUM SERUM 3.5 mmol/L (3.5-5.1); SODIUM SERUM 138 mmol/L (136-145)
[2017-09-14 17:30] VITALS: BP 136/78
== END 2017-09-14 18:22 | disposition home or self-care (01) | DRG 282 ==
LOC: ED 01:58 → DU 03:28
PROVIDERS: Emergency Medicine; Family Medicine
DX: K85.20 Alcohol induced acute pancreatitis without necrosis or infection (principal); N17.0 Acute kidney failure with tubular necrosis; R65.10 Systemic inflammatory response syndrome (SIRS) of non-infectious origin without acute organ dysfunction; K72.90 Hepatic failure, unspecified without coma; K70.10 Alcoholic hepatitis without ascites; E11.65 Type 2 diabetes mellitus with hyperglycemia; E44.1 Mild protein-calorie malnutrition; K76.0 Fatty (change of) liver, not elsewhere classified; E83.42 Hypomagnesemia; E87.1 Hypo-osmolality and hyponatremia; I10 Essential (primary) hypertension; F31.9 Bipolar disorder, unspecified; F10.20 Alcohol dependence, uncomplicated; E78.00 Pure hypercholesterolemia, unspecified; F14.90 Cocaine use, unspecified, uncomplicated; E86.0 Dehydration; R31.9 Hematuria, unspecified; R74.0 Nonspecific elevation of levels of transaminase and lactic acid dehydrogenase [LDH]; E83.39 Other disorders of phosphorus metabolism; Z90.49 Acquired absence of other specified parts of digestive tract; Z88.5 Allergy status to narcotic agent
CPT/HCPCS: 36600; 82962; 83880; 84439; G0480; J0360; J0696; J1885; J2060; J2405; J3490; J7030; Q0092

== ENCOUNTER 2017-09-26 22:07 | Inpatient (IN) | payer OTHER ==
[~2017-09-26] VITALS: Ht 177.8 cm; Wt 91.6 kg
[~2017-09-26 22:07] MED LIST changes: +ABILIFY5 M1 PO; +FLUOXETINE20 M3; +LANTI SQ; +ZES10 PO; +ZESTRIL10 MG
[2017-09-26 23:03] LABS: BASOPHIL % 0.6 % (0-2); PLATELET COUNT 277 x10^3mcL (130-400)
[2017-09-26 23:04] LABS: RED CELL DISTRIBUTION WIDTH 15.4 % (11.5-14.5)
[2017-09-26 23:16] LABS: ALBUMIN 3.4 g/dL (3.4-5.0); BILIRUBIN TOTAL 1.6 mg/dL (0.20-1.00); CALCIUM 7.8 mg/dL (8.5-10.1); CREATININE SERUM 1.6 mg/dL (0.7-1.3); POTASSIUM SERUM 4.6 mmol/L (3.5-5.1)
[2017-09-26 23:21] LABS: CARBON DIOXIDE 7.9 mmol/L (21-32)
[2017-09-27 01:22] LABS: FREE T4 0.58 ng/dL (0.76-1.46); FREE THYROXINE INDEX 1.4 ug/dL (1.4-4.5); T4(THYROXINE) 3.7 ug/dL (4.7-13.3)
[2017-09-27 01:42] LABS: MAGNESIUM 1.8 mg/dL (1.8-2.4); PHOSPHOROUS 5.4 mg/dL (2.5-4.9)
[2017-09-27 01:59] LABS: UA SPECIFIC GRAVITY >=1.030 (1.005-1.035); microscopic required? YES; urine erythrocyte 2+ (NEGATIVE)
[2017-09-27 02:11] LABS: T3 TOTAL 0.7 ng/mL
[2017-09-27 02:24] LABS: AMPHETAMINE QUAL UR NONE DETECTED (See below)
[2017-09-27 02:34] VITALS: BP 153/97
[2017-09-27 02:48] LABS: CALCIUM 8.2 mg/dL (8.5-10.1); CREATININE SERUM 1.6 mg/dL (0.7-1.3); POTASSIUM SERUM 4.7 mmol/L (3.5-5.1)
[2017-09-27 03:05] LABS: CARBON DIOXIDE 6.4 mmol/L (21-32)
[2017-09-27 03:14] VITALS: BP 148/94
[2017-09-27 04:21] LABS: CALCIUM 7.4 mg/dL (8.5-10.1); CARBON DIOXIDE 12.2 mmol/L (21-32); CREATININE SERUM 1.4 mg/dL (0.7-1.3); POTASSIUM SERUM 4.3 mmol/L (3.5-5.1)
[2017-09-27 05:53] LABS: CHOLESTEROL 226 mg/dL (<200); CHOLESTEROL/HDL RATIO 9.8; TRIGLYCERIDES 1901 mg/dL (<150)
[2017-09-27 05:54] LABS: HDL CHOLESTEROL 23 mg/dL (40-60)
[2017-09-27 08:18] VITALS: Ht 177.8 cm; Wt 91.6 kg
[2017-09-27 08:21] VITALS: BP 147/93
[2017-09-27 08:21] LABS: CALCIUM 7.4 mg/dL (8.5-10.1); CARBON DIOXIDE 21.8 mmol/L (21-32); CHLORIDE SERUM 99 mmol/L (98-107); CREATININE SERUM 1.1 mg/dL (0.7-1.3); GFR1 > 60 mL/min; GLUCOSE SERUM 235 mg/dL (74-106); POTASSIUM SERUM 3.9 mmol/L (3.5-5.1); SODIUM SERUM 133 mmol/L (136-145)
[2017-09-27 12:00] VITALS: BP 116/66
[2017-09-27 12:51] LABS: CALCIUM 7.3 mg/dL (8.5-10.1); CARBON DIOXIDE 23.8 mmol/L (21-32); CHLORIDE SERUM 99 mmol/L (98-107); GFR1 > 60 mL/min; GLUCOSE SERUM 208 mg/dL (74-106); POTASSIUM SERUM 3.7 mmol/L (3.5-5.1); SODIUM SERUM 133 mmol/L (136-145)
[2017-09-27 15:12] LABS: CALCIUM 7.4 mg/dL (8.5-10.1); CARBON DIOXIDE 24.5 mmol/L (21-32); CHLORIDE SERUM 100 mmol/L (98-107); CREATININE SERUM 0.9 mg/dL (0.7-1.3); GFR1 > 60 mL/min; GLUCOSE SERUM 206 mg/dL (74-106); POTASSIUM SERUM 3.8 mmol/L (3.5-5.1); SODIUM SERUM 133 mmol/L (136-145)
[2017-09-27 15:42] VITALS: BP 150/88
[2017-09-27 19:30] VITALS: BP 133/83
[2017-09-28 05:23] VITALS: BP 124/71
[2017-09-28 06:39] LABS: BASOPHIL % 0.6 % (0-2)
[2017-09-28 06:58] LABS: PLATELET COUNT 115 x10^3mcL (130-400); RED CELL DISTRIBUTION WIDTH 15.8 % (11.5-14.5)
[2017-09-28 06:59] LABS: CALCIUM 7.9 mg/dL (8.5-10.1); CARBON DIOXIDE 24.8 mmol/L (21-32); CHLORIDE SERUM 101 mmol/L (98-107); CREATININE SERUM 0.7 mg/dL (0.7-1.3); GFR1 > 60 mL/min; GLUCOSE SERUM 175 mg/dL (74-106); MAGNESIUM 1.5 mg/dL (1.8-2.4); POTASSIUM SERUM 3.5 mmol/L (3.5-5.1); SODIUM SERUM 136 mmol/L (136-145)
[2017-09-28 09:30] VITALS: BP 138/83
== END 2017-09-28 11:20 | disposition left against medical advice (07) | DRG 420 ==
LOC: ED 22:07 → IC 23:49 → DU 09-27 21:43
PROVIDERS: Emergency Medicine; Family Medicine
PROC: 02HV33Z Insertion of Infusion Device into Superior Vena Cava, Percutaneous Approach (ICD-10-PCS; principal; 2017-09-27)
PROC: B548ZZA Ultrasonography of Superior Vena Cava, Guidance (ICD-10-PCS; 2017-09-27)
DX: E11.10 Type 2 diabetes mellitus with ketoacidosis without coma (principal); N17.0 Acute kidney failure with tubular necrosis; G93.41 Metabolic encephalopathy; K85.20 Alcohol induced acute pancreatitis without necrosis or infection; K51.00 Ulcerative (chronic) pancolitis without complications; I10 Essential (primary) hypertension; F10.129 Alcohol abuse with intoxication, unspecified; F31.81 Bipolar II disorder; I70.209 Unspecified atherosclerosis of native arteries of extremities, unspecified extremity; D64.9 Anemia, unspecified; E66.9 Obesity, unspecified; E78.5 Hyperlipidemia, unspecified; K27.9 Peptic ulcer, site unspecified, unspecified as acute or chronic, without hemorrhage or perforation; K29.70 Gastritis, unspecified, without bleeding; K29.80 Duodenitis without bleeding; Z68.31 Body mass index [BMI] 31.0-31.9, adult; Z53.21 Procedure and treatment not carried out due to patient leaving prior to being seen by health care provider
CPT/HCPCS: 36556; 36600; 82962; 83880; 84439; G0480; J1642; J1815; J2060; J2405; J3010; J3475; J3490; J7030; Q0092; Q9967

== ENCOUNTER 2017-11-13 19:23 | Inpatient (IN) | payer OTHER ==
[~2017-11-13] VITALS: Ht 177.8 cm; Wt 93.0 kg
[2017-11-13 19:28] VITALS: Ht 177.8 cm; Wt 93.0 kg
[2017-11-13 20:23] LABS: BASOPHIL % 0.8 % (0-2); PLATELET COUNT 335 x10^3mcL (130-400)
[2017-11-13 20:27] LABS: RED CELL DISTRIBUTION WIDTH 15.1 % (11.5-14.5)
[2017-11-13 20:31] LABS: CALCIUM 8.2 mg/dL (8.5-10.1); CARBON DIOXIDE 23.8 mmol/L (21-32); CHLORIDE SERUM 100 mmol/L (98-107); CREATININE SERUM 1.2 mg/dL (0.7-1.3); GFR1 > 60 mL/min; GLUCOSE SERUM 95 mg/dL (74-106); POTASSIUM SERUM 3.5 mmol/L (3.5-5.1); SODIUM SERUM 136 mmol/L (136-145)
[2017-11-13 20:36] LABS: ALBUMIN 3.2 g/dL (3.4-5.0); ALKALINE PHOSPHATASE 247 U/L (46-116); ALT/SGPT 72 U/L (16-63); AST/SGOT 91 U/L (15-37); BILIRUBIN TOTAL 2.3 mg/dL (0.20-1.00); TOTAL PROTEIN, SERUM 6.7 g/dL (6.4-8.2)
[2017-11-13] MEDS ORDERED: LISINOPRIL10 MG PO (21:02)
[2017-11-13] MEDS ORDERED: GLIPIZIDE5 M2 PO (21:02)
[2017-11-13] MEDS ORDERED: PANTOPRAZOLE SO20 M1 (21:03)
[2017-11-13 22:07] VITALS: BP 128/75
[2017-11-14 00:10] VITALS: BP 123/72
[2017-11-14 03:38] VITALS: BP 114/74
[2017-11-14 05:35] LABS: BASOPHIL % 0.4 % (0-2); PLATELET COUNT 237 x10^3mcL (130-400)
[2017-11-14 05:38] LABS: RED CELL DISTRIBUTION WIDTH 14.8 % (11.5-14.5)
[2017-11-14 05:46] LABS: CALCIUM 8.3 mg/dL (8.5-10.1); CARBON DIOXIDE 23.9 mmol/L (21-32); CHLORIDE SERUM 105 mmol/L (98-107); CREATININE SERUM 0.9 mg/dL (0.7-1.3); GFR1 > 60 mL/min; GLUCOSE SERUM 273 mg/dL (74-106); POTASSIUM SERUM 4.9 mmol/L (3.5-5.1); SODIUM SERUM 139 mmol/L (136-145)
[2017-11-14 07:45] VITALS: BP 126/73
[2017-11-14] MEDS ORDERED: EPIPEN JR 20.5 MG/ML IM (08:33)
[2017-11-14 08:40] VITALS: BP 127/79
== END 2017-11-14 09:20 | disposition home or self-care (01) | DRG 811 ==
LOC: ED 19:23 → IC 20:31
PROVIDERS: Emergency Medicine; Internal Medicine Pulmonary Disease
DX: T78.3XXA Angioneurotic edema, initial encounter (principal); T78.05XA Anaphylactic reaction due to tree nuts and seeds, initial encounter; E11.9 Type 2 diabetes mellitus without complications; I10 Essential (primary) hypertension; E78.5 Hyperlipidemia, unspecified; F32.9 Major depressive disorder, single episode, unspecified; E78.00 Pure hypercholesterolemia, unspecified; K21.9 Gastro-esophageal reflux disease without esophagitis; Z79.82 Long term (current) use of aspirin; Z79.4 Long term (current) use of insulin; Z79.84 Long term (current) use of oral hypoglycemic drugs; Z88.5 Allergy status to narcotic agent; Z90.49 Acquired absence of other specified parts of digestive tract; Z91.018 Allergy to other foods
CPT/HCPCS: 83880; J0171; J1200; J1644; J2920; J2930; J3490; J7030; J7613

== ENCOUNTER 2018-01-09 23:51 | Inpatient (IN) | payer OTHER ==
[~2018-01-09] VITALS: Ht 177.8 cm; Wt 93.9 kg
[~2018-01-09 23:51] MED LIST changes: +EPIPEN JR 20.5 MG/ML IM; +GLIPIZIDE5 M2 PO; +PANTOPRAZOLE SO20 M1
[2018-01-09 23:56] VITALS: Ht 177.8 cm; Wt 93.9 kg
[2018-01-10 01:29] LABS: RED CELL DISTRIBUTION WIDTH 13.9 % (11.5-14.5)
[2018-01-10 01:34] LABS: CALCIUM 8.9 mg/dL (8.5-10.1); CARBON DIOXIDE 18.2 mmol/L (21-32); CHLORIDE SERUM 93 mmol/L (98-107); CREATININE SERUM 0.8 mg/dL (0.7-1.3); GFR1 > 60 mL/min; GLUCOSE SERUM 297 mg/dL (74-106); POTASSIUM SERUM 3.7 mmol/L (3.5-5.1); SODIUM SERUM 137 mmol/L (136-145)
[2018-01-10 01:39] LABS: ALKALINE PHOSPHATASE 131 U/L (46-116); ALT/SGPT 45 U/L (16-63); AST/SGOT 181 U/L (15-37); BILIRUBIN TOTAL 1.32 mg/dL (0.20-1.00); TOTAL PROTEIN, SERUM 7.2 g/dL (6.4-8.2)
[2018-01-10 01:53] LABS: ALBUMIN 3.3 g/dL (3.4-5.0)
[2018-01-10 01:54] LABS: BASOPHIL % 0 % (0-2); PLATELET COUNT 69 x10^3mcL (130-400)
[2018-01-10] MEDS ORDERED: ONDANSETRON4 M3 PO (01:55)
[2018-01-10] MEDS ORDERED: HUMALOG100 UNIT/1 SQ (01:55)
[2018-01-10] MEDS ORDERED: SIMVASTATIN20 M1 PO (01:55)
[2018-01-10] MEDS ORDERED: LANTUS SOLOS100 U/M1 SC (01:55)
[2018-01-10] MEDS ORDERED: PROTONIX40 MG PO (01:56)
[2018-01-10] MEDS ORDERED: LIBRAX1 CAP PO (01:56)
[2018-01-10 02:37] LABS: UA SPECIFIC GRAVITY >=1.030 (1.005-1.035); microscopic required? YES; urine erythrocyte NEGATIVE (NEGATIVE)
[2018-01-10 03:29] VITALS: BP 155/87
[2018-01-10 06:47] LABS: BASOPHIL % 0.2 % (0-2); RED CELL DISTRIBUTION WIDTH 13.8 % (11.5-14.5)
[2018-01-10 07:10] LABS: CALCIUM 9.6 mg/dL (8.5-10.1); CARBON DIOXIDE 22.6 mmol/L (21-32); CREATININE SERUM 0.8 mg/dL (0.7-1.3); GFR1 > 60 mL/min; GLUCOSE SERUM 338 mg/dL (74-106); PLATELET COUNT 58 x10^3mcL (130-400)
[2018-01-10 08:02] LABS: CHLORIDE SERUM 90 mmol/L (98-107); POTASSIUM SERUM 3.5 mmol/L (3.5-5.1); SODIUM SERUM 129 mmol/L (136-145)
[2018-01-10] MEDS ORDERED: LANTUS SOLOS100 U/M1 SQ (09:11)
[2018-01-10] MEDS ORDERED: HUMALOG100 U/ML SQ (09:12)
[2018-01-10 09:34] VITALS: BP 142/78
[2018-01-10 17:20] VITALS: BP 149/85
[2018-01-10 20:17] VITALS: BP 138/83
[2018-01-11 05:27] VITALS: BP 131/78
[2018-01-11 06:45] LABS: CALCIUM 8.6 mg/dL (8.5-10.1); CARBON DIOXIDE 27.7 mmol/L (21-32); CHLORIDE SERUM 93 mmol/L (98-107); CREATININE SERUM 0.8 mg/dL (0.7-1.3); GFR1 > 60 mL/min; GLUCOSE SERUM 306 mg/dL (74-106); MAGNESIUM 1.8 mg/dL (1.8-2.4); POTASSIUM SERUM 3.7 mmol/L (3.5-5.1); SODIUM SERUM 133 mmol/L (136-145)
[2018-01-11 06:49] LABS: BASOPHIL % 0.3 % (0-2)
[2018-01-11 06:51] LABS: PLATELET COUNT 47 x10^3mcL (130-400)
[2018-01-11 09:07] VITALS: BP 149/89
[2018-01-11] MEDS ORDERED: ATI1 PO (12:13)
[2018-01-11 12:47] LABS: BILIRUBIN DIRECT 1.21 mg/dL (0.0-0.2); BILIRUBIN TOTAL 2.6 mg/dL (0.20-1.00)
[2018-01-11 12:48] LABS: ALBUMIN 2.9 g/dL (3.4-5.0)
[2018-01-11 15:41] VITALS: BP 149/89
== END 2018-01-11 16:02 | disposition home or self-care (01) | DRG 203 ==
LOC: ED 23:51 → DU 01-10 02:35 → MU 01-10 03:22
PROVIDERS: Emergency Medicine; Internal Medicine Pulmonary Disease
DX: R07.89 Other chest pain (principal); D69.6 Thrombocytopenia, unspecified; E87.1 Hypo-osmolality and hyponatremia; F10.10 Alcohol abuse, uncomplicated; I10 Essential (primary) hypertension; E78.00 Pure hypercholesterolemia, unspecified; K21.9 Gastro-esophageal reflux disease without esophagitis; F41.9 Anxiety disorder, unspecified; F32.9 Major depressive disorder, single episode, unspecified; E11.9 Type 2 diabetes mellitus without complications; E86.9 Volume depletion, unspecified; Z88.8 Allergy status to other drugs, medicaments and biological substances; Z90.49 Acquired absence of other specified parts of digestive tract; Z91.018 Allergy to other foods; Z79.899 Other long term (current) drug therapy
CPT/HCPCS: 82962; 83880; G0378; J1815; J1817; J2405; J3475; J3490; J7030; Q0092

== ENCOUNTER 2018-09-17 00:08 | Inpatient (IN) | payer OTHER ==
[2018-09-17] VITALS (10 sets, daily range): BP systolic 139–176; BP diastolic 69–101; Ht 177.8 cm; Wt 90.7 kg
[~2018-09-17] VITALS: Ht 177.8 cm; Wt 90.7 kg
[~2018-09-17 00:08] MED LIST changes: +HUMALOG100 U/ML SQ; +HUMALOG100 UNIT/1 SQ; +LANTUS SOLOS100 U/M1 SQ; +LIBRAX1 CAP PO; +ONDANSETRON4 M3 PO; +PROTONIX40 MG PO; +SIMVASTATIN20 M1 PO
[2018-09-17 00:41] LABS: CARBON DIOXIDE 15.6 mmol/L (21-32); CHLORIDE SERUM 87 mmol/L (98-107); CREATININE SERUM 1.2 mg/dL (0.7-1.3); GFR1 > 60 mL/min; GLUCOSE SERUM 332 mg/dL (74-106); POTASSIUM SERUM 4.2 mmol/L (3.5-5.1); SODIUM SERUM 130 mmol/L (136-145)
[2018-09-17 00:42] LABS: BASOPHIL % 0.4 % (0-2); PLATELET COUNT 216 x10^3mcL (130-400); RED CELL DISTRIBUTION WIDTH 15.1 % (11.5-14.5)
[2018-09-17 00:46] LABS: ALBUMIN 4.2 g/dL (3.4-5.0); ALKALINE PHOSPHATASE 109 U/L (46-116); ALT/SGPT 60 U/L (16-63); AST/SGOT 126 U/L (15-37); BILIRUBIN TOTAL 2.68 mg/dL (0.20-1.00)
[2018-09-17 00:48] LABS: TOTAL PROTEIN, SERUM 8.4 g/dL (6.4-8.2)
[2018-09-17] MEDS ORDERED: ABILIFY5 M1 PO (02:19)
[2018-09-17] MEDS ORDERED: LANTI (02:23)
[2018-09-17 05:57] LABS: BASOPHIL % 0.4 % (0-2); CALCIUM 8.6 mg/dL (8.5-10.1); CARBON DIOXIDE 18.4 mmol/L (21-32); CHLORIDE SERUM 96 mmol/L (98-107); CREATININE SERUM 1.1 mg/dL (0.7-1.3); GFR1 > 60 mL/min; GLUCOSE SERUM 194 mg/dL (74-106); PLATELET COUNT 148 x10^3mcL (130-400); POTASSIUM SERUM 3.4 mmol/L (3.5-5.1); SODIUM SERUM 136 mmol/L (136-145)
[2018-09-17 06:04] LABS: RED CELL DISTRIBUTION WIDTH 14.7 % (11.5-14.5)
[2018-09-17 10:42] LABS: CALCIUM 8.9 mg/dL (8.5-10.1); CARBON DIOXIDE 18.6 mmol/L (21-32); CHLORIDE SERUM 97 mmol/L (98-107); CREATININE SERUM 1.1 mg/dL (0.7-1.3); GFR1 > 60 mL/min; GLUCOSE SERUM 243 mg/dL (74-106); POTASSIUM SERUM 3.9 mmol/L (3.5-5.1); SODIUM SERUM 137 mmol/L (136-145)
[2018-09-17 16:31] LABS: CALCIUM 8.6 mg/dL (8.5-10.1); CARBON DIOXIDE 22.6 mmol/L (21-32); CHLORIDE SERUM 100 mmol/L (98-107); CREATININE SERUM 0.9 mg/dL (0.7-1.3); GFR1 > 60 mL/min; GLUCOSE SERUM 205 mg/dL (74-106); POTASSIUM SERUM 3.8 mmol/L (3.5-5.1); SODIUM SERUM 138 mmol/L (136-145)
[2018-09-17 20:36] LABS: CALCIUM 8.6 mg/dL (8.5-10.1); CARBON DIOXIDE 25.7 mmol/L (21-32); CHLORIDE SERUM 103 mmol/L (98-107); CREATININE SERUM 0.9 mg/dL (0.7-1.3); GFR1 > 60 mL/min; GLUCOSE SERUM 81 mg/dL (74-106); SODIUM SERUM 140 mmol/L (136-145)
[2018-09-18 03:41] VITALS: BP 141/74
[2018-09-18 06:03] LABS: BASOPHIL % 0.7 % (0-2)
[2018-09-18 06:04] LABS: PLATELET COUNT 101 x10^3mcL (130-400); RED CELL DISTRIBUTION WIDTH 14.9 % (11.5-14.5)
[2018-09-18 06:15] LABS: ALBUMIN 3.4 g/dL (3.4-5.0); ALKALINE PHOSPHATASE 89 U/L (46-116); ALT/SGPT 50 U/L (16-63); AST/SGOT 97 U/L (15-37); BILIRUBIN TOTAL 3.28 mg/dL (0.20-1.00); CALCIUM 8.3 mg/dL (8.5-10.1); CARBON DIOXIDE 23.1 mmol/L (21-32); CHLORIDE SERUM 102 mmol/L (98-107); CREATININE SERUM 0.8 mg/dL (0.7-1.3); GFR1 > 60 mL/min; GLUCOSE SERUM 171 mg/dL (74-106); MAGNESIUM 1.3 mg/dL (1.8-2.4); POTASSIUM SERUM 3.1 mmol/L (3.5-5.1); SODIUM SERUM 138 mmol/L (136-145); TOTAL PROTEIN, SERUM 6.5 g/dL (6.4-8.2)
[2018-09-18 07:30] VITALS: BP 153/83
[2018-09-18 12:11] VITALS: BP 151/80
[2018-09-18 12:20] LABS: CALCIUM 8.4 mg/dL (8.5-10.1); CARBON DIOXIDE 24.9 mmol/L (21-32); CHLORIDE SERUM 98 mmol/L (98-107); CREATININE SERUM 0.9 mg/dL (0.7-1.3); GFR1 > 60 mL/min; GLUCOSE SERUM 311 mg/dL (74-106); MAGNESIUM 1.8 mg/dL (1.8-2.4); POTASSIUM SERUM 3.6 mmol/L (3.5-5.1); SODIUM SERUM 137 mmol/L (136-145)
[2018-09-18 15:52] VITALS: BP 155/82
[2018-09-18 16:15] LABS: CALCIUM 8.5 mg/dL (8.5-10.1); CARBON DIOXIDE 24.8 mmol/L (21-32); CHLORIDE SERUM 99 mmol/L (98-107); CREATININE SERUM 0.8 mg/dL (0.7-1.3); GFR1 > 60 mL/min; GLUCOSE SERUM 226 mg/dL (74-106); MAGNESIUM 1.5 mg/dL (1.8-2.4); POTASSIUM SERUM 3.5 mmol/L (3.5-5.1); SODIUM SERUM 135 mmol/L (136-145)
[2018-09-18 20:10] LABS: CALCIUM 8.9 mg/dL (8.5-10.1); CARBON DIOXIDE 24.9 mmol/L (21-32); CHLORIDE SERUM 99 mmol/L (98-107); CREATININE SERUM 0.8 mg/dL (0.7-1.3); GFR1 > 60 mL/min; GLUCOSE SERUM 257 mg/dL (74-106); MAGNESIUM 1.6 mg/dL (1.8-2.4); POTASSIUM SERUM 3.6 mmol/L (3.5-5.1); SODIUM SERUM 136 mmol/L (136-145)
[2018-09-19 00:48] LABS: CARBON DIOXIDE 27.8 mmol/L (21-32); CHLORIDE SERUM 99 mmol/L (98-107); CREATININE SERUM 0.8 mg/dL (0.7-1.3); GFR1 > 60 mL/min; GLUCOSE SERUM 259 mg/dL (74-106); MAGNESIUM 1.4 mg/dL (1.8-2.4); POTASSIUM SERUM 3.5 mmol/L (3.5-5.1); SODIUM SERUM 135 mmol/L (136-145)
[2018-09-19 05:28] LABS: BASOPHIL % 0.3 % (0-2); PLATELET COUNT 81 x10^3mcL (130-400); RED CELL DISTRIBUTION WIDTH 14.6 % (11.5-14.5)
[2018-09-19 05:29] LABS: CALCIUM 9.1 mg/dL (8.5-10.1); CARBON DIOXIDE 25.4 mmol/L (21-32); CHLORIDE SERUM 98 mmol/L (98-107); CREATININE SERUM 0.8 mg/dL (0.7-1.3); GFR1 > 60 mL/min; GLUCOSE SERUM 222 mg/dL (74-106); MAGNESIUM 1.4 mg/dL (1.8-2.4); POTASSIUM SERUM 3.2 mmol/L (3.5-5.1); SODIUM SERUM 135 mmol/L (136-145)
[2018-09-19 05:34] LABS: CARBON DIOXIDE 25.4 mmol/L (21-32); CHLORIDE SERUM 98 mmol/L (98-107); CREATININE SERUM 0.8 mg/dL (0.7-1.3); GFR1 > 60 mL/min; GLUCOSE SERUM 222 mg/dL (74-106); POTASSIUM SERUM 3.2 mmol/L (3.5-5.1); SODIUM SERUM 135 mmol/L (136-145)
[2018-09-19 06:08] LABS: ALBUMIN 3.3 g/dL (3.4-5.0)
[2018-09-19 06:30] LABS: ALKALINE PHOSPHATASE 90 U/L (46-116); ALT/SGPT 47 U/L (16-63); AST/SGOT 76 U/L (15-37); TOTAL PROTEIN, SERUM 6.5 g/dL (6.4-8.2)
[2018-09-19 08:00] VITALS: BP 166/90
[2018-09-19 08:46] LABS: CALCIUM 9.2 mg/dL (8.5-10.1); CARBON DIOXIDE 24.6 mmol/L (21-32); CHLORIDE SERUM 97 mmol/L (98-107); CREATININE SERUM 0.9 mg/dL (0.7-1.3); GFR1 > 60 mL/min; GLUCOSE SERUM 275 mg/dL (74-106); MAGNESIUM 1.4 mg/dL (1.8-2.4); POTASSIUM SERUM 3.5 mmol/L (3.5-5.1); SODIUM SERUM 134 mmol/L (136-145)
[2018-09-19 11:55] LABS: CARBON DIOXIDE 28.1 mmol/L (21-32); CHLORIDE SERUM 97 mmol/L (98-107); CREATININE SERUM 0.9 mg/dL (0.7-1.3); GFR1 > 60 mL/min; GLUCOSE SERUM 300 mg/dL (74-106); MAGNESIUM 1.5 mg/dL (1.8-2.4); POTASSIUM SERUM 3.3 mmol/L (3.5-5.1); SODIUM SERUM 136 mmol/L (136-145)
== END 2018-09-19 11:45 | disposition left against medical advice (07) | DRG 280 ==
LOC: ED 00:08 → IC 01:22
PROVIDERS: Emergency Medicine; Internal Medicine Pulmonary Disease; ADMIT Internal Medicine Pulmonary Disease
DX: K70.30 Alcoholic cirrhosis of liver without ascites (principal); E11.10 Type 2 diabetes mellitus with ketoacidosis without coma; K92.0 Hematemesis; E11.9 Type 2 diabetes mellitus without complications; F19.10 Other psychoactive substance abuse, uncomplicated; K21.9 Gastro-esophageal reflux disease without esophagitis; F14.10 Cocaine abuse, uncomplicated; F41.8 Other specified anxiety disorders; F31.9 Bipolar disorder, unspecified; E78.00 Pure hypercholesterolemia, unspecified; Z53.21 Procedure and treatment not carried out due to patient leaving prior to being seen by health care provider; Z88.6 Allergy status to analgesic agent; Z91.018 Allergy to other foods; Z90.49 Acquired absence of other specified parts of digestive tract
CPT/HCPCS: 82962; B4164; G0480; J1815; J2405; J3475; J3480; J7030; J7042; Q0092

== ENCOUNTER 2018-09-24 19:49 | Emergency (ER) | payer OTHER ==
[~2018-09-24] VITALS: Ht 177.8 cm; Wt 89.8 kg
[~2018-09-24 19:49] MED LIST changes: +LANTI
[2018-09-24 19:55] VITALS: Ht 177.8 cm; Wt 89.8 kg
[2018-09-24 21:03] LABS: BASOPHIL % 0.6 % (0-2); PLATELET COUNT 249 x10^3mcL (130-400)
[2018-09-24 21:07] LABS: RED CELL DISTRIBUTION WIDTH 14.8 % (11.5-14.5)
[2018-09-24 21:18] LABS: CALCIUM 9.6 mg/dL (8.5-10.1); CARBON DIOXIDE 29.6 mmol/L (21-32); CHLORIDE SERUM 100 mmol/L (98-107); CREATININE SERUM 0.9 mg/dL (0.7-1.3); GFR1 > 60 mL/min; GLUCOSE SERUM 341 mg/dL (74-106); POTASSIUM SERUM 4.5 mmol/L (3.5-5.1); SODIUM SERUM 138 mmol/L (136-145)
[2018-09-24 21:23] LABS: ALBUMIN 3.9 g/dL (3.4-5.0); ALKALINE PHOSPHATASE 126 U/L (46-116); ALT/SGPT 54 U/L (16-63); AST/SGOT 82 U/L (15-37); BILIRUBIN TOTAL 1.45 mg/dL (0.20-1.00); LIPASE 40 IU/L (73-393); TOTAL PROTEIN, SERUM 7.7 g/dL (6.4-8.2)
[2018-09-24 23:42] VITALS: BP 157/76
[2018-09-25] MEDS ORDERED: OMEPRAZOLE20 M4 PO (22:38)
== END 2018-09-24 23:42 | disposition home or self-care (01) ==
LOC: ED 19:49
PROVIDERS: Emergency Medicine
DX: R07.89 Other chest pain (principal); F14.90 Cocaine use, unspecified, uncomplicated; I10 Essential (primary) hypertension; F41.9 Anxiety disorder, unspecified; E11.9 Type 2 diabetes mellitus without complications; E78.00 Pure hypercholesterolemia, unspecified; Z90.89 Acquired absence of other organs; Z90.49 Acquired absence of other specified parts of digestive tract; Z88.5 Allergy status to narcotic agent
CPT/HCPCS: 82962; J2060; J7030; Q0092

== ENCOUNTER 2018-09-25 20:24 | Observation (INO) | payer OTHER ==
[~2018-09-25] VITALS: Ht 177.8 cm; Wt 91.2 kg
[2018-09-25 20:34] VITALS: Ht 177.8 cm; Wt 91.2 kg
--- NOTE | 2018-09-25 20:39 | NUR ---
PT BROUGHT IN BY AMBULANCE FOR CHEST PRESSURE AND HEADACHE THAT BEGAN 1HR PRIOR TO ARRIVAL WHILE HE WAS WALKING. PT REPORTS COCAINE USE 3 DAYS AGO AND STATES CHEST PRESSURE BEGAN SINCE THEN. PT AWAKE, ALERT, RESPIRATIONS EVEN AND UNLABORED. SPEAKING IN FULL AND COMPLETE SENTENCES. SAFETY PRECAUTIONS IN PLACE
[2018-09-25 21:07] LABS: BASOPHIL % 0.5 % (0-2); PLATELET COUNT 243 x10^3mcL (130-400)
[2018-09-25 21:12] LABS: RED CELL DISTRIBUTION WIDTH 14.7 % (11.5-14.5)
[2018-09-25 21:23] LABS: CALCIUM 9.9 mg/dL (8.5-10.1); CHLORIDE SERUM 102 mmol/L (98-107); CREATININE SERUM 0.9 mg/dL (0.7-1.3); GFR1 > 60 mL/min; GLUCOSE SERUM 379 mg/dL (74-106); POTASSIUM SERUM 5.3 mmol/L (3.5-5.1); SODIUM SERUM 138 mmol/L (136-145)
[2018-09-25 21:27] LABS: ALBUMIN 3.8 g/dL (3.4-5.0); ALKALINE PHOSPHATASE 159 U/L (46-116); ALT/SGPT 58 U/L (16-63); AST/SGOT 108 U/L (15-37); BILIRUBIN TOTAL 1.57 mg/dL (0.20-1.00); TOTAL PROTEIN, SERUM 7.8 g/dL (6.4-8.2)
--- NOTE | 2018-09-25 22:28 | NUR ---
PT REMAINS FREE FROM S/S OF DISTRESS. RESTING WITH EYES CLOSED, RESPIRATIONS EVEN AND UNLABORED. SAFETY PRECAUTIONS IN PLACE
[2018-09-25] MEDS ORDERED: OMEPRAZOLE20 M4 PO (22:38)
--- NOTE | 2018-09-25 23:20 | NUR ---
REPORT GIVEN TO ALEXANDRU VALVERDE, ALL QUESTIONS AND CONCERNS WERE ADDRESSED
--- NOTE | 2018-09-25 23:27 | NUR ---
RECEIVED PT FROM ED VIA [facility], CAME IN DUE TO CHEST PAIN AND HYPERTENSION. AAOX4. DENIES HEADACHE/DIZZINESS. NO SOB NOTED, LUNG SOUNDS CTA. DENIES CHEST PAIN/PRESSURE, SR ON THE MONITOR. DENIES ABDOMINAL DISCOMFORT. BOWEL SOUNDS ACTIVE. VOIDS. IV SITE ON THE RAC IS PATENT AND INTACT. SIDE RAILS UPX2. CALL LIGHT ON REACH. OM=012/85. PRIMARY NURSE ALEXANDRU AT BEDSIDE FOR CONTINUITY OF CARE
[2018-09-25 23:46] VITALS: BP 137/85
--- NOTE | 2018-09-26 | NUR ---
ADAPTER NOTED TO PATIENTS ABD, PER PT IT MEASURES HIS BLOOD SUGAR AND RECORDS ON HIS PHONE.
--- NOTE | 2018-09-26 | NUR ---
SPOKE TO DR SZYMANSKI AT THIS TIME, ADMISSION ORDERS CARRIED OUT.
[2018-09-26 00:39] LABS: AMPHETAMINE QUAL UR NONE DETECTED (See below)
--- NOTE | 2018-09-26 01:45 | NUR ---
PT RESTING, BREATHING EVEN AND UNLABORED WITH NO SOB NOTED. NO SIGNS OF ACUTE DISTRESS NOTED. CALL BUTTON WITHIN REACH. WILL CONTINUE TO MONITOR.
--- NOTE | 2018-09-26 04:00 | NUR ---
PT RESTING, BREATHING EVEN AND UNLABORED. NO SIGNS OF DISTRESS NOTED. CALL BUTTON WITHIN REACH. WILL MONITOR.
--- NOTE | 2018-09-26 05:17 | NUR ---
PT SLEPT MOST OF THE NIGHT WITH NO SIGNS OF DISTRESS. BREATHING EVEN AND UNLABORED ON RA. IV PATENT, SL. PT DENIES ANY CHEST PAIN OR PRESSURE. PT AMBULATORY. CALL BUTTON WITHIN REACH. WILL CONTINUE TO MONITOR AND ENDORSE CARE TO DAY SHIFT RN.
[2018-09-26 05:53] VITALS: BP 139/89
[2018-09-26 06:55] LABS: CK-MB 1.7 ng/mL (0-3.6)
--- NOTE | 2018-09-26 07:36 | NUR ---
PT RESTING, BREATHING EVEN AND UNLABORED, NO SIGNS OF DISTRESS NOTED. ENDORSED CARE TO DAY SHIFT RN, ALL QUESTIONS ADDRESSED.
[2018-09-26 07:59] VITALS: BP 124/81
--- NOTE | 2018-09-26 09:15 | NUR ---
PT WANTS TO LEAVE AMA. TROP (-) X 3, NO PRESSURE OR PAIN TO CHEST AT THIS TIME. VSS. T.C. TO DR. RAMIREZ TO INFORM HIM PT IS LEAVING. IV DC'D TELE # 25 REMOVED AND RETURNED TO TELE STATION. PT SIGNED AMA FORM. INDEPENDENT W ADL'S.
== END 2018-09-26 09:21 | disposition left against medical advice (07) | DRG 756 ==
LOC: ED 20:24 → DU 22:33
PROVIDERS: Emergency Medicine; ADMIT Internal Medicine
DX: F41.9 Anxiety disorder, unspecified (principal); E11.9 Type 2 diabetes mellitus without complications; I16.0 Hypertensive urgency; I10 Essential (primary) hypertension; F14.10 Cocaine abuse, uncomplicated; F12.10 Cannabis abuse, uncomplicated; Z53.21 Procedure and treatment not carried out due to patient leaving prior to being seen by health care provider
CPT/HCPCS: 82962; 83880; G0378; J1650; J2060; Q0092; Q0161

== ENCOUNTER 2019-02-15 12:08 | Observation (INO) | payer OTHER ==
[~2019-02-15] VITALS: Ht 177.8 cm; Wt 93.0 kg
[~2019-02-15 12:08] MED LIST changes: +OMEPRAZOLE20 M4 PO
[2019-02-15 12:15] VITALS: Ht 177.8 cm; Wt 93.0 kg
--- NOTE | 2019-02-15 12:15 | NUR ---
PT BIB AMBULANCE WITH C/O NONRADIATING CHEST TIGHTNESS WITH SOB SINCE NOON YESTERDAY, PER MEDICS PT WAS SINUS TACHYCARDIA WITH BLOOD GLUCOSE "HIGH 400'S" D/T "NOT TAKING MEDICATION THIS MORNIGN" PER MEDICS PT HAS HX DM, AND PT SELF MEDICATED WITH 324 MG ASPIRIN AND VIOLET FD ADMIN 1 NITRO AND PAIN WENT FROM 8 TO 5, UPON ARRIVAL PT AAOX4, RESPS E/U, LUNGS CTA, NO S/S RESP DISTRESS NOTED, PT DENIES ANY DIZZINESS AND/OR EPISODES OF N/V AT THIS TIME, PT GOWNED AND PLACED ON FULL CM, SINUS TACYCARDIA, PT IN NAD SPEAKING FULL CLEAR SENTENCES, AWAITING MSE
--- NOTE | 2019-02-15 12:36 | NUR ---
MD WAITE AT BEDSIDE PERFORMING MSE
[2019-02-15 12:40] LABS: BASOPHIL % 0.4 % (0-2); PLATELET COUNT 161 x10^3mcL (130-400)
[2019-02-15 12:41] LABS: RED CELL DISTRIBUTION WIDTH 16.9 % (11.5-14.5)
--- NOTE | 2019-02-15 12:41 | NUR ---
PT ON HIS PHONE IN NAD, RESPS E/U, VSS
[2019-02-15 12:43] LABS: CALCIUM 8.7 mg/dL (8.5-10.1); CHLORIDE SERUM 97 mmol/L (98-107); CREATININE SERUM 1.1 mg/dL (0.7-1.3); GFR1 > 60 mL/min; GLUCOSE SERUM 401 mg/dL (74-106); SODIUM SERUM 134 mmol/L (136-145)
[2019-02-15 12:48] LABS: ALBUMIN 3.6 g/dL (3.4-5.0); ALKALINE PHOSPHATASE 112 U/L (46-116); ALT/SGPT 47 U/L (16-63); AST/SGOT 47 U/L (15-37); BILIRUBIN TOTAL 1.2 mg/dL (0.20-1.00); TOTAL PROTEIN, SERUM 7.2 g/dL (6.4-8.2)
--- NOTE | 2019-02-15 13:06 | NUR ---
PER MD WAITE PT STS HE DRINKS DAILY AND "STOPPED DRINKING YESTERDAY" PER MD WAITE POSSIBLE ETOH WITHDRAWALS
--- NOTE | 2019-02-15 13:12 | NUR ---
PT MEDICATED PER MD ORDER AND EMAR, RESPS E/U, VSS, PT REMAINS SINUS TACHYCARDIA ON CM, WILL CONTINUE TO MONITOR
[2019-02-15] MEDS ORDERED: LANTUS SOLOS100 U/M1 (13:39)
[2019-02-15] MEDS ORDERED: ABILIFY5 M1 PO (13:39)
--- NOTE | 2019-02-15 14:00 | NUR ---
PT ASLEEP BUT AROUSABLE, RESPS E/U, VSS, NSR ON CM
--- NOTE | 2019-02-15 14:01 | NUR ---
REPORT GIVEN TO GIUSEPPE VALVERDE, TELE
--- NOTE | 2019-02-15 14:05 | NUR ---
RECEIVED PT VIA [employer] FROM E/D, ACCOMPANIED BY RN AND TRANSPORTER. PT A/A/O X 4, CALM, COOPERATIVE; WEARS GLASSES (W/ PT). AMBULATORY, NO GAIT OR BALANCE IMPAIRMENT NOTED WHEN WALKING FROM GURNEY TO BED. ON TELE # 17, NSR, HR 84, DENIES CHEST PAIN AT THIS TIME, BUT DOES C/O CHEST TIGHTNESS. SCD BY BEDSIDE. NO ACUTE RESPIRATORY DISTRESS NOTED. ABD SOFT, ROUND, NON-TENDER, NORMOACTIVE BOWEL SOUNDS X 4 QUADS, LAST BM 02/15/19, WATERY DIARRHEA. IV SITE LFA 18G, CDI. ORIENTED PT TO ROOM, BED CONTROLS, CALL LIGHT SYSTEM. SIDE RAILS UP X 2, BED IN LOW POSITION, WILL ENDORSE TO ABRAM GUERRA.
[2019-02-15 14:42] VITALS: BP 162/102
--- NOTE | 2019-02-15 15:00 | NUR ---
PT RESTING IN BED COMFORTABLY. STABLE. DENIES CHEST PAIN THIS TIME. CALLED AND INFORMED ABOUT NEED ADMISSION ORDERS FOR THE PT. SAID HE WILL PUT THE ORDERS. ALSO INFORMED HIM ABOUT BP 162/102.
--- NOTE | 2019-02-15 15:30 | NUR ---
RECHECKED BP IS 150/92. PT RESTING IN BED COMFORTABLY. STABLE. DENIES ANY CHEST PAIN.
[2019-02-15 17:33] VITALS: BP 163/84
--- NOTE | 2019-02-15 19:00 | NUR ---
REPORT RECEIVED FROM DAY SHIFT RN. PATIENT WAS SEEN RESTING COMFORTABLY IN BED W/ GF AT BEDSIDE. NO DISTRESS NOTED, A/OX4, CLEAR AND APPROPAITE SPEECH. BREATHING EVEN AND UNLABORED ON ROOM AIR. NO SOB OR RESP DISTRESS NOTED. IV TO THE LFA, SALINE LOCK, PATENT AND INTACT. NO REDNESS OR SWELLING NOTED. DENIES CHEST PAIN/PRESSURE OR PALPITATIONS. DENIES PAIN. COMFORT AND SAFETY MEASURES IN PLACE. BED IS LOCKED AND IN THE LOWEST POSITION. SIDE RAILS UP X2. CALL LIGHT IS WITHIN REACH. WILL CONTINUE TO MONITOR.
--- NOTE | 2019-02-15 19:05 | NUR ---
PT RESTING IN BED COMFORTABLY. STABLE. GIRL FRIEND AT BEDSIDE. DENIES ANY PAIN. GAVE REPORT TO PRESSURE TESTING TECHNICIAN NURSE.
[2019-02-15 20:30] VITALS: BP 140/88
--- NOTE | 2019-02-16 | NUR ---
RESTING IN BED WITH EYES CLOSED. NO DISTRESS NOTED. BREATHING EVEN AND UNLABORED ON ROOM AIR. NO SOB OR RESP DISTRESS NOTED. NO S/S OF PAIN NOTED. SAFETY MEASURES IN PLACE. CALL LIGHT IS WITHIN REACH. WILL CONTINUE TO MONITOR.
--- NOTE | 2019-02-16 03:03 | NUR ---
RESTING IN BED WITH EYES CLOSED. NO DISTRESS NOTED. BREATHING EVEN AND UNLABORED ON ROOM AIR. NO SOB NOTED. NO S/S OF PAIN NOTED. SEIZURE PRECAUTIONS IN PLACE. SAFETY MEASURES IN PLACE. CALL LIGHT IS WITHIN REACH. WILL CONTINUE TO MONITOR.
[2019-02-16 05:14] VITALS: BP 160/107
--- NOTE | 2019-02-16 05:16 | NUR ---
HIGH BP 160/107 (124), HR 81. NO DISTRESS NOTED. WILL REASSESS BP.
[2019-02-16 05:19] LABS: CALCIUM 8.7 mg/dL (8.5-10.1); CARBON DIOXIDE 27.3 mmol/L (21-32); CHLORIDE SERUM 99 mmol/L (98-107); CREATININE SERUM 0.8 mg/dL (0.7-1.3); GFR1 > 60 mL/min; GLUCOSE SERUM 252 mg/dL (74-106); MAGNESIUM 1.6 mg/dL (1.8-2.4); PHOSPHOROUS 2.9 mg/dL (2.5-4.9); POTASSIUM SERUM 3.5 mmol/L (3.5-5.1); SODIUM SERUM 135 mmol/L (136-145)
[2019-02-16 05:42] VITALS: BP 164/93
--- NOTE | 2019-02-16 05:42 | NUR ---
BP REASSESED 164/93(116), HR 71, [employer] YOUTH MANAGER AWAITING CALL BACK
--- NOTE | 2019-02-16 06:27 | NUR ---
DR GALINDO CALLED BACK AND PER HIM, THE BP IS OKAY. NO NEW ORDERS AT THIS TIME
--- NOTE | 2019-02-16 06:54 | NUR ---
RESTED IN LONG INTERVALS THROUGHOUT THE NIGHT. NO ACUTE CHANGES NOTED. BREATHING EVEN AND UNLABORED ON ROOM AIR. NO DISTRESS NOTED. NO C/O PAIN THROUGHOUT THE NIGHT. DENIES CHEST PAIN/PRESSURE. SAFETY MEASURES IN PLACE. SEZIURE PRECAUTIONS IN PLACE. NO SEIZURES NOTED. CALL LIGHT IS WITHIN REACH. WILL ENDORSE CARE TO DAY SHIFT RN.
--- NOTE | 2019-02-16 07:35 | NUR ---
RECEIVED PT IN BED. ASSESSED AND DOCUMENTED. DENIES ANY PAIN. STABLE. SAFTEY PRECAUTIONS ARE IN PLACE. WILL MONITOR.
[2019-02-16 08:22] VITALS: BP 157/88
[2019-02-16 12:27] VITALS: BP 162/94
--- NOTE | 2019-02-16 15:10 | NUR ---
PT WENT DOWN TO [facility]ARD[facility] ARE[facility] FOR STRESS TEST. STABLE. V/S STABLE.
--- NOTE | 2019-02-16 16:00 | NUR ---
RECEIVED PT FROM [facility] AFTER STRESS TEST. STABLE.
--- NOTE | 2019-02-16 16:03 | NUR ---
SPOKE WITH DR BLACKMAN RE: DC PATIENT HOME. PER DR YEHUDA BAPTISTE TO DC PATIENT HOME TODAY. PATIENT TO RECEIVE A DOSE OF METOPROLOL PRIOR TO DC HOME AND CONTINUE METOPROLOL AT HOME PRESCRIBED. ATTENDING NURSE MARI MADE AWARE.
--- NOTE | 2019-02-16 16:11 | NUR ---
routine treadmill completed
[2019-02-16 16:38] VITALS: BP 156/94
--- NOTE | 2019-02-16 17:10 | NUR ---
DISCHARGE INSTRUCTIONS AND PRESCRIPTION GIVEN. PB SIGNED AND SENT WITH PT. IV REMOVED AND DRESSING APPLIED. TELE REMOVED. DENIES ANY PAIN. BP AFTER METOPROLOL IS 156/94. RIB MATCHER AND FITTER WHEELED PT DOWN TO LOBBY ACCOMPANIED WITH HIS FRIEND. PT DC HOME.
== END 2019-02-16 17:23 | disposition home or self-care (01) | DRG 203 ==
LOC: ED 12:08 → DU 13:26
PROVIDERS: ADMIT Internal Medicine
DX: R07.89 Other chest pain (principal); E11.65 Type 2 diabetes mellitus with hyperglycemia; E86.0 Dehydration; E78.5 Hyperlipidemia, unspecified; F31.9 Bipolar disorder, unspecified; I10 Essential (primary) hypertension; Z79.4 Long term (current) use of insulin; Z82.49 Family history of ischemic heart disease and other diseases of the circulatory system
CPT/HCPCS: 82962; 97116-GP; G0378; J0456; J1644; J1815; J2060; J7030; J7040; Q0092